=== PATIENT | female | born 1935 | race Caucasian/White ===

== ENCOUNTER → 2016-11-08 | Outpatient (CLI) | payer OTHER ==
[~2016-11-08] MED LIST: ACET-1257 PO; AMLO-110 PO; APR/25 PO; ASPI81TA28 PO; ATOR-26 PO; CRD200 PO; CYAN100020 PO; DOCU-94 PO; ESCI10TA17 PO; FURO-85 PO; LATA0.5S OPB; METO25TA56 PO; NTRGSL/4 UT; NYST1POW7 TOP; SENN8.6T15 PO; TRMCR515 TOP; VTMD1000 PO; WARF4TAB PO
[2016-11-08 12:37] LABS: INR 2.4 (0.9-1.1); PROTHROMBIN TIME (PATIENT) 26.5 SECONDS (9.0-12.0)
== END | disposition home or self-care (01) ==
LOC: C.LABWYN 12:38
PROVIDERS: ATTEND Family Medicine
DX: Z51.81 Encounter for therapeutic drug level monitoring (principal); Z79.01 Long term (current) use of anticoagulants; I48.91 Unspecified atrial fibrillation

== ENCOUNTER → 2016-11-29 | Outpatient (CLI) | payer OTHER ==
[2016-11-29 09:38] LABS: INR 1.5 (0.9-1.1); PROTHROMBIN TIME (PATIENT) 16.5 SECONDS (9.0-12.0)
== END | disposition home or self-care (01) ==
LOC: C.LABWYN 09:06
PROVIDERS: ATTEND Family Medicine
DX: I48.91 Unspecified atrial fibrillation (principal)

== ENCOUNTER → 2016-12-18 | Outpatient (CLI) | payer OTHER ==
[~2016-12-18] MED LIST changes: +AMLO2.5T PO; -APR/25 PO; +ATV5X PO; +AZIT-60 PO; +ESCI1TAB6 PO; +HYDR-4716 PO; +MULT-513 PO; +ONDA4TAB46 PO; +PRD20 PO; +SENN1TAB86 PO; -SENN8.6T15 PO; +TRMCR130WC TOP; +XPNINS INH
[2016-12-18 14:17] LABS: INR 2.4 (0.9-1.1); PROTHROMBIN TIME (PATIENT) 27.2 SECONDS (9.0-12.0)
== END | disposition home or self-care (01) ==
LOC: C.LABWYN 05:55
PROVIDERS: ATTEND Family Medicine
DX: Z51.81 Encounter for therapeutic drug level monitoring (principal); Z79.01 Long term (current) use of anticoagulants

== ENCOUNTER → 2017-01-17 | Outpatient (CLI) | payer OTHER ==
[2017-01-17 12:21] LABS: PROTHROMBIN TIME (PATIENT) 80.8 SECONDS (9.0-12.0)
== END | disposition home or self-care (01) ==
LOC: C.LABWYN 12:52
PROVIDERS: ATTEND Family Medicine
DX: I48.91 Unspecified atrial fibrillation (principal)

== ENCOUNTER → 2017-01-22 | Outpatient (CLI) | payer OTHER ==
[2017-01-22 12:40] LABS: PROTHROMBIN TIME (PATIENT) 60.2 SECONDS (9.0-12.0)
[2017-01-22 12:41] LABS: INR 5.3 (0.9-1.1)
== END | disposition home or self-care (01) ==
LOC: C.LABWYN 15:25
PROVIDERS: ATTEND Family Medicine
DX: I48.91 Unspecified atrial fibrillation (principal)

== ENCOUNTER → 2017-01-24 | Outpatient (CLI) | payer OTHER ==
[~2017-01-24] MED LIST changes: -AMLO2.5T PO; +APR/25 PO; -ATV5X PO; -AZIT-60 PO; -ESCI1TAB6 PO; -HYDR-4716 PO; -MULT-513 PO; -ONDA4TAB46 PO; -PRD20 PO; -SENN1TAB86 PO; +SENN8.6T15 PO; -TRMCR130WC TOP; -XPNINS INH
[2017-01-24 12:16] LABS: PROTHROMBIN TIME (PATIENT) 70.6 SECONDS (9.0-12.0)
[2017-01-24 12:25] LABS: INR 6.1 (0.9-1.1)
== END | disposition home or self-care (01) ==
LOC: C.LABWYN 12:50
PROVIDERS: ATTEND Family Medicine
DX: I48.91 Unspecified atrial fibrillation (principal)

== ENCOUNTER → 2017-01-29 | Outpatient (CLI) | payer OTHER ==
[~2017-01-29] MED LIST changes: +AMLO2.5T PO; -APR/25 PO; +ATV5X PO; +AZIT-60 PO; +ESCI1TAB6 PO; +HYDR-4716 PO; +MULT-513 PO; +ONDA4TAB46 PO; +PRD20 PO; +SENN1TAB86 PO; -SENN8.6T15 PO; +TRMCR130WC TOP; +XPNINS INH
[2017-01-29 12:24] LABS: INR 1.3 (0.9-1.1); PROTHROMBIN TIME (PATIENT) 14.4 SECONDS (9.0-12.0)
== END | disposition home or self-care (01) ==
LOC: C.LABWYN 12:27
PROVIDERS: ATTEND Family Medicine
DX: I48.91 Unspecified atrial fibrillation (principal)

== ENCOUNTER → 2017-02-05 | Outpatient (CLI) | payer OTHER ==
[2017-02-05 13:24] LABS: INR 1.6 (0.9-1.1); PROTHROMBIN TIME (PATIENT) 17.7 SECONDS (9.0-12.0)
== END | disposition home or self-care (01) ==
LOC: C.LABWYN 16:06
PROVIDERS: ATTEND Family Medicine
DX: I48.0 Paroxysmal atrial fibrillation (principal)

== ENCOUNTER → 2017-05-07 | Outpatient (CLI) | payer OTHER ==
[~2017-05-07] MED LIST changes: -AMLO2.5T PO; +APR/25 PO; -ATV5X PO; -AZIT-60 PO; -ESCI1TAB6 PO; -HYDR-4716 PO; -MULT-513 PO; -ONDA4TAB46 PO; -PRD20 PO; -SENN1TAB86 PO; +SENN8.6T15 PO; -TRMCR130WC TOP; -XPNINS INH
[2017-05-07 12:25] LABS: MEAN CELL VOLUME 97.6 fL (80-100); MEAN CORPUSCULAR HEMOGLOBIN 30.9 pg (25-34); MEAN CORPUSCULAR HGB CONC 31.6 g/dl (32-36); MEAN PLATELET VOLUME 10.4 fL (7.4-10.4); PLATELET COUNT 146 K/uL (130-400); RED BLOOD COUNT 3.79 M/uL (4.2-5.4); WHITE BLOOD COUNT 4.53 K/uL (4.8-10.8)
[2017-05-07 13:11] LABS: BLOOD UREA NITROGEN 25 mg/dl (7-18); BUN/CREATININE RATIO 17.6 (10-20); CARBON DIOXIDE 24 mmol/L (21-32); CHLORIDE 116 mmol/L (98-107); GLUCOSE 74 mg/dl (70-99); POTASSIUM 3.5 mmol/L (3.5-5.1); SODIUM 149 mmol/L (136-145)
== END | disposition home or self-care (01) ==
LOC: C.LABWYN 17:46
PROVIDERS: ATTEND Nurse Practitioner Adult Health
DX: I12.9 Hypertensive chronic kidney disease with stage 1 through stage 4 chronic kidney disease, or unspecified chronic kidney disease (principal); N18.9 Chronic kidney disease, unspecified

== ENCOUNTER 2017-09-17 19:34 | Inpatient (IN) | payer OTHER ==
[~2017-09-17] VITALS: Ht 162.6 cm; Wt 62.0 kg
[~2017-09-17 19:34] MED LIST changes: -APR/25 PO; -ASPI81TA28 PO; +HYDR-4716 PO; +SENN1TAB86 PO; -SENN8.6T15 PO
--- NOTE | 2017-09-17 20:04 | EMERGENCY ROOM VISIT NOTE ---
History Report prepared by Amy: Anirudh Flanagan Under the Supervision of: Dr. Adrian Acuña M.D. First contact with patient: 19:37 Chief Complaint: SYNCOPE Stated Complaint: SYNCOPE, AMS Nursing Triage Summary: [facility] PT was in restroom with staff, sitting on toilet. PT had syncopal episode for staff X 2-3 mins. PERRL upon arrival, PT face is symmetrical with strong and equal bilateral hand grasp. PT has audible gurgling with cough. PT has multiple red pak noted all over upper extremities. PT oriented to self, HX of dementia History of Present Illness The patient is an 82 year old female who presents to the Emergency Room with complaints of an episode of syncope occurring today. Per nursing staff, the patient was in the bathroom with nursing room staff when she lost consciousness. She notes that the patient's episode lasted for 2-3 minutes. The patient states that she is feeling fine right now and is not sleepy or in any pain. She notes that she does not remember passing out. She complains of a cough and abdominal pain. HPI limited secondary to dementia. Source of History: patient, nursing staff History Limited By: dementia Onset: today Position: other (global) Quality: other (syncope) Timing: other (an episode) Note: She denies being sleepy or experiencing any pain. Review of Systems ROS limited secondary to dementia. Past Medical & Surgical Medical Problems: (1) Atrial fibrillation (2) CKD (chronic kidney disease), stage IV (3) Coronary artery disease (4) Dementia (5) Dyslipidemia (6) Fall (7) H/O cardiac pacemaker (8) History of atrial fibrillation (9) History of endometrial cancer (10) History of renal carcinoma (11) Hypertension (12) Near syncope (13) Paroxysmal supraventricular tachycardia (14) Syncope (15) Syncope and collapse Surgical Problems: (1) Status post cataract extraction (2) Status post coronary artery bypass grafting (3) Status post hysterectomy Family History Coronary artery disease SISTER Dementia MOTHER Heart disease FATHER Prostate carcinoma BROTHER Social History Smoking Status: Unknown if Ever Smoked Alcohol Use: none Drug Use: none Marital Status: Housing Status: [facility] Occupation Status: retired Current/Historical Medications Scheduled Amiodarone HCl (Amiodarone HCl), 200 MG PO DAILY Amlodipine Besylate (Norvasc), 2.5 MG PO DAILY Aspirin (Aspirin Ec), 81 MG PO DAILY Atorvastatin (Lipitor), 80 MG PO DAILY Escitalopram Oxalate (Lexapro), 5 MG PO DAILY Furosemide (Lasix), 20 MG PO 2XWK Hydralazine HCl (Hydralazine HCl), 25 MG PO TID Latanoprost (Xalatan 0.005% Oph Naomie), 1 DROP OPB HS Metoprolol Tartrate (Lopressor) (Lopressor), 25 MG PO Q12 Multivitamins/Minerals (Mvi With Minerals), 1 TAB PO DAILY Scheduled PRN Acetaminophen (Tylenol Extra Strength), 500 MG PO Q4 PRN for Pain or Fever Lorazepam (Lorazepam), 0.5 TAB PO Q6 PRN for Anxiety and/or Sedation Nitroglycerin (Nitrostat), 0.4 MG UT UD PRN for Chest Pain Ondansetron Hcl (Zofran), 4 MG PO Q6 PRN for Nausea Triamcinolone Acet (Aristocort 0.1%), 1 APPLN TOP BID PRN for RASH Allergies Coded Allergies: Allopurinol (Verified Adverse Reaction, Intermediate, weakness, 09/22/16) Lisinopril (Verified Adverse Reaction, Intermediate, COUGH, 09/22/16) Losartan (Verified Adverse Reaction, Intermediate, TONGUE SWELLING, ) Physical Exam Vital Signs Date Time Temp Pulse Resp B/P (MAP) Pulse Ox O2 Delivery O2 Flow Rate FiO2 09/17/17 23:01 126/50 09/17/17 23:00 63 22 91 09/17/17 22:00 100 22 125/49 95 Room Air 09/17/17 21:40 62 22 136/49 94 Room Air 09/17/17 20:51 72 09/17/17 19:48 37.0 82 18 141/66 95 Room Air Physical Exam GENERAL: Awake, fatigued, in no distress HENT: Normocephalic, atraumatic. Oropharynx unremarkable. Cracked lips. EYES: Normal conjunctiva. Sclera non-icteric. NECK: Supple. No nuchal rigidity. FROM. No JVD. RESPIRATORY: Clear to auscultation. CARDIAC: Regular rate, normal rhythm. Extremities warm and well perfused. Pulses equal. ABDOMEN: Soft, non-distended. No tenderness to palpation. No rebound or guarding. No masses. RECTAL: Deferred. MUSCULOSKELETAL: Chest examination reveals no tenderness. The back is symmetrical on inspection without obvious abnormality. There is no CVA tenderness to palpation. No joint edema. LOWER EXTREMITIES: Calves are equal size bilaterally and non-tender. No edema. No discoloration. NEURO: Normal sensorium. No sensory or motor deficits noted. Slow motor movement but moving all extremities equally, A&Ox0 due to baseline dementia. SKIN: No rash or jaundice noted. Medical Decision & Procedures ER Provider Diagnostic Interpretation: Radiology results as stated below per my review and radiologist interpretation: CT OF THE HEAD WITHOUT CONTRAST FINDINGS: No acute intracranial hemorrhage, midline shift or mass effect is present. Ventricular dilatation is unchanged. The basilar cisterns are patent. There are no extra-axial collections. White matter hypodensity suggests small vessel disease. 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 There are no findings to suggest acute dural sinus thrombosis or acute territorial infarct. There is no calvarial fracture. There is mild mucosal thickening of the ethmoid sinuses. IMPRESSION: No acute intracranial findings. Stable ventricular dilatation. Electronically signed by: Johny Aguirre M.D. 09/17/2017 9:46 PM CHEST ONE VIEW PORTABLE FINDINGS: A dual lead left subclavian pacemaker, median sternotomy wires and clips from bypass grafting are noted. Cardiomediastinal silhouette is stable. There is no pneumothorax or pleural effusion. Apparent hazy left basilar opacity is likely artifactual. There is no evidence of pulmonary edema. IMPRESSION: 1. No definite acute cardiopulmonary findings. 2. Apparent hazy left basilar retrocardiac opacity. This is likely artifactual. An infectious process could appear similar. PA and lateral chest radiographs could be obtained if persistent symptoms. Electronically signed by: Johny Aguirre M.D. 09/17/2017 9:05 PM Laboratory Results Test 09/17/17 21:00 09/17/17 21:17 09/17/17 21:19 Urine Color DK YELLOW Urine Appearance CLOUDY (CLEAR) Urine pH 5.0 (4.5-7.5) Urine Specific [place] 1.021 (1.000-1.030) Urine Protein TRACE (NEG) Urine Glucose (UA) NEG (NEG) Urine Ketones TRACE (NEG) Urine Occult Blood NEG (NEG) Urine Nitrite NEG (NEG) Urine Bilirubin NEG (NEG) Urine Urobilinogen NEG (NEG) Urine Leukocyte Esterase TRACE (NEG) Urine WBC (Auto) 1-5 /hpf (0-5) Urine RBC (Auto) 0-4 /hpf (0-4) Urine Hyaline Casts (Auto) 5-10 /lpf (0-5) Urine Epithelial Cells (Auto) >30 /lpf (0-5) Urine Bacteria (Auto) 4+ (NEG) Urine Renal Epithelial Cells 0-5 /lpf (0-5) Urine Yeast (Auto) (NONE PRSENT) Immature Granulocyte % (Auto) 0.3 % White Blood Count 14.28 K/uL (4.8-10.8) Red Blood Count 3.92 M/uL (4.2-5.4) Hemoglobin 12.9 g/dL (12.0-16.0) Hematocrit 39.4 % (37-47) Mean Corpuscular Volume 100.5 fL (80-100) Mean Corpuscular Hemoglobin 32.9 pg (25-34) Mean Corpuscular Hemoglobin Concent 32.7 g/dl (32-36) Platelet Count 152 K/uL (130-400) Mean Platelet Volume 10.2 fL (7.4-10.4) Neutrophils (%) (Auto) 86.0 % Lymphocytes (%) (Auto) 6.9 % Monocytes (%) (Auto) 6.1 % Eosinophils (%) (Auto) 0.6 % Basophils (%) (Auto) 0.1 % Neutrophils # (Auto) 12.28 K/uL (1.4-6.5) Lymphocytes # (Auto) 0.98 K/uL (1.2-3.4) Monocytes # (Auto) 0.87 K/uL (0.11-0.59) Eosinophils # (Auto) 0.09 K/uL (0-0.5) Basophils # (Auto) 0.02 K/uL (0-0.2) Immature Granulocyte # (Auto) 0.04 K/uL (0.00-0.02) Prothrombin Time 10.9 SECONDS (9.0-12.0) Prothromb Time International Ratio 1.0 (0.9-1.1) Total Bilirubin 0.8 mg/dl (0.2-1) Direct Bilirubin 0.2 mg/dl (0-0.2) Aspartate Amino Transf (AST/SGOT) 33 U/L (15-37) Alanine Aminotransferase (ALT/SGPT) 45 U/L (12-78) Alkaline Phosphatase 112 U/L (45-117) Pro-B-Type Natriuretic Peptide 1644 pg/ml (0-1800) Total Protein 7.5 gm/dl (6.4-8.2) Albumin 3.6 gm/dl (3.4-5.0) Lipase 285 U/L (73-393) Thyroid Stimulating Hormone (TSH) 0.601 uIu/ml (0.300-4.500) Laboratory results reviewed by me Medications Administered Medications (Trade) Dose Ordered Sig/Ajti Route Start Time Stop Time Status Last Admin Dose Admin Ceftriaxone Sodium 1000 mg/ Dextrose 60 ml @ 100 mls/hr ONE STAT IV 09/17/17 21:55 09/17/17 22:30 DC 09/17/17 21:55 100 MLS/HR ECG Indication: altered mental status Rate (beats per minute): 64 Rhythm: other (atrial paced) Findings: no acute ischemic change, left axis deviation, other (poor baseline artifact) ED Course 1955: The patient was evaluated in room B3. A complete history and physical exam was performed. 2154: Ceftriaxone Sodium 1000mg/Dextrose 60 ml @ 100mls/hr IV 2233: Upon reexamination, the patient was stable. I discussed the test results and treatment plan with Dr. Troncoso - VanistRossi. The patient will be evaluated for further management. Medical Decision I reviewed the patient's past medical history, medications, and the nursing notes as described above. Differential diagnoses include: vasovagal vs. orthostatic syncope, dehydration, electrolyte abnormality, pneumonia, bronchitis, UTI, CVA, and ICH. The patient is an 82-year-old woman with a past medical history of diastolic heart failure, A. fib not on Coumadin, presents to the emergency Department with syncopal episode from her assisted living facility when she was going to the bathroom per history of present illness. On arrival the patient is demented and AOx0, afebrile with stable vital signs. Labs notable for a leukocytosis of 14. UA with 4+ bacteria. Trop negative. EKG unremarkable. Chest x-ray with left retrocardiac opacity concerning for pneumonia given the patient's semi-productive cough and leukocytosis. Given the patient's syncopal episode in the setting of infection, referred for admission. Case was discussed with Rossi Tracy hospitalist, who will admit the patient for further management. Medication Reconcilliation Current Medication List: was personally reviewed by me Blood Pressure Screening Patient's blood pressure: Normal blood pressure Consults Time Called: 2231 Consulting Physician: Dr. Troncoso Returned Call: 2233 I discussed the patient with Dr. Troncoso - HospitalistRossi. He will evaluate the patient for further treatment. Impression Primary Impression: Syncope Additional Impressions: History of heart failure UTI (urinary tract infection) Pneumonia Scribe Attestation The scribe's documentation has been prepared under my direction and personally reviewed by me in its entirety. I confirm that the note above accurately reflects all work, treatment, procedures, and medical decision making performed by me. Departure Information Dispostion Being Evaluated By Hospitalist Referrals RITA PEDROZA (PCP) Patient Instructions My [facility] Problem Qualifiers
[2017-09-17] MEDS ORDERED: ONDA4TAB46 PO (20:49)
[2017-09-17] MEDS ORDERED: AMLO2.5T PO (20:49)
[2017-09-17] MEDS ORDERED: ATV5X PO (20:49)
[2017-09-17] MEDS ORDERED: TRMCR130WC TOP (20:49)
[2017-09-17] MEDS ORDERED: MULT-513 PO (20:49)
[2017-09-17] MEDS ORDERED: ESCI1TAB6 PO (20:49)
--- NOTE | 2017-09-17 21:06 | DIAGNOSTIC IMAGING REPORT ---
CHEST ONE VIEW PORTABLE CLINICAL HISTORY: Abdominal pain. COMPARISON STUDY: Chest radiograph September 22, 2016. FINDINGS: A dual lead left subclavian pacemaker, median sternotomy wires and clips from bypass grafting are noted. Cardiomediastinal silhouette is stable. There is no pneumothorax or pleural effusion. Apparent hazy left basilar opacity is likely artifactual. There is no evidence of pulmonary edema. IMPRESSION: 1. No definite acute cardiopulmonary findings. 2. Apparent hazy left basilar retrocardiac opacity. This is likely artifactual. An infectious process could appear similar. PA and lateral chest radiographs could be obtained if persistent symptoms. Electronically signed by: Johny Aguirre M.D. 09/17/2017 9:05 PM Dictated Date/Time: 09/17/2017 9:03 PM
[2017-09-17 21:32] LABS: URINE APPEARANCE CLOUDY (CLEAR); URINE BILIRUBIN NEG (NEG); URINE COLOR DK YELLOW; URINE EPITHELIAL CELL AUTO >30 /lpf (0-5); URINE NITRITE NEG (NEG); URINE SPECIFIC GRAVITY 1.021 (1.000-1.030); UROBILINOGEN NEG (NEG); ZZURINE CULT IF INDIC CATH YES
[2017-09-17 21:32] LABS: BASO % 0.1 %; BASO ABS # 0.02 K/uL (0-0.2); COMPLETE YES; EOS % 0.6 %; HEMATOCRIT 39.4 % (37-47); IG% 0.3 %; LYMPH % 6.9 %; LYMPH ABS # 0.98 K/uL (1.2-3.4); MEAN CELL VOLUME 100.5 fL (80-100); MEAN CORPUSCULAR HEMOGLOBIN 32.9 pg (25-34); MEAN CORPUSCULAR HGB CONC 32.7 g/dl (32-36); MEAN PLATELET VOLUME 10.2 fL (7.4-10.4); MONO % 6.1 %; PLATELET COUNT 152 K/uL (130-400); RED BLOOD COUNT 3.92 M/uL (4.2-5.4); WHITE BLOOD COUNT 14.28 K/uL (4.8-10.8)
[2017-09-17 21:34] LABS: MANUAL MICROSCOPIC REQUIRED? NO; REVIEW REQ? YES
[2017-09-17 21:45] LABS: PROTHROMBIN TIME (PATIENT) 10.9 SECONDS (9.0-12.0)
--- NOTE | 2017-09-17 21:48 | DIAGNOSTIC IMAGING REPORT ---
CT OF THE HEAD WITHOUT CONTRAST CLINICAL HISTORY: Syncope. COMPARISON STUDY: Head CT July 17, 2016. CT DOSE: 749.40 mGy.cm TECHNIQUE: Helical axial images of the head were obtained without IV contrast. Automated exposure control was utilized for the study. A dose lowering technique was utilized adhering to the principles of ALARA. FINDINGS: No acute intracranial hemorrhage, midline shift or mass effect is present. Ventricular dilatation is unchanged. The basilar cisterns are patent. There are no extra-axial collections. White matter hypodensity suggests small vessel disease. 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 There are no findings to suggest acute dural sinus thrombosis or acute territorial infarct. There is no calvarial fracture. There is mild mucosal thickening of the ethmoid sinuses. IMPRESSION: No acute intracranial findings. Stable ventricular dilatation. Electronically signed by: Johny Aguirre M.D. 09/17/2017 9:46 PM Dictated Date/Time: 09/17/2017 9:44 PM
[2017-09-17] MEDS ORDERED: CEFTRIAXONE SOD INJ 1,000 MG in DEXTROSE 5% 50ML 50 ML IV STA (21:55)
[2017-09-17 22:03] LABS: ALT/SGPT 45 U/L (12-78); BLOOD UREA NITROGEN 28 mg/dl (7-18); BUN/CREATININE RATIO 17.5 (10-20); CALCIUM 9.2 mg/dl (8.5-10.1); CARBON DIOXIDE 22 mmol/L (21-32); CHLORIDE 111 mmol/L (98-107); CREATININE 1.59 mg/dl (0.60-1.20); GLUCOSE 131 mg/dl (70-99); MAGNESIUM 2.1 mg/dl (1.8-2.4); POTASSIUM 3.9 mmol/L (3.5-5.1); SODIUM 143 mmol/L (136-145)
[2017-09-17] MEDS ORDERED: CEFTRIAXONE SOD INJ 1 GM ADDVIAL ONE (22:03)
[2017-09-17 22:08] LABS: ALKALINE PHOSPHATASE 112 U/L (45-117); AST/SGOT 33 U/L (15-37)
[2017-09-17] MEDS ORDERED: AZITHROMYCIN 250 MG TAB PO ONE (22:45)
[2017-09-17] MEDS ORDERED: ACETAMINOPHEN 325 MG TAB PO PRN (23:15)
[2017-09-17] MEDS ORDERED: LORAZEPAM 0.5 MG TAB PO PRN (23:15)
[2017-09-17] MEDS ORDERED: MAGNESIUM HYDROXIDE SUSP 30 ML UDC PO PRN (23:15)
[2017-09-17] MEDS ORDERED: ONDANSETRON INJ 2 MG/ML 2 ML VIAL IV PRN (23:15)
[2017-09-17] MEDS ORDERED: ALUMINUM/MAGNESIUM/SIMETH (MAALOX MAX) 30 ML UDC PO PRN (23:15)
[2017-09-17] MEDS ORDERED: ASPI81TA28 PO (23:24)
--- NOTE | 2017-09-17 23:26 | History and Physical ---
History & Physical Date & Time of Service: Sep 17, 2017 at 23:11 Chief Complaint: Syncope, Ams Primary Care Physician: Rivera Burns D.O. History of Present Illness Source: clinic records, hospital records, EMS This is an 82 year old female coming from assisted living - with a PMH of dementia, CAD s/p CABG and stents, Paroxysmal A. fib, tachy-luda syndrome s/p PPM, CKD stage 3, HTN, HLD - presents secondary to a syncopal episode. As per records, patient fell in the bathroom of the assisted living. Found around 2-3 minutes later. As per records, she has a history of falls and was taken off of Coumadin due to her propensity for falls. She has ambulatory dysfunction chronically and is supposed to use a walker, but going by outpatient notes, she uses refuses to use it. After presenting, she was noted to have a productive cough. CXR performed showing possible infiltrate. Labs suggest a leukocytosis. During exam, patient was oriented to person, but not much else. Very difficult to obtain any history from patient due to her underlying severe dementia. Past Medical/Surgical History Medical Problems: (1) Atrial fibrillation Status: Chronic (2) CKD (chronic kidney disease), stage IV Status: Chronic (3) Coronary artery disease Status: Chronic (4) Dyslipidemia Status: Chronic (5) H/O cardiac pacemaker Status: Chronic (6) History of atrial fibrillation Status: Chronic (7) History of endometrial cancer Status: Chronic (8) History of renal carcinoma Status: Chronic (9) Hypertension Status: Chronic (10) Paroxysmal supraventricular tachycardia Status: Chronic Surgical Problems: (1) Status post cataract extraction Status: Chronic (2) Status post coronary artery bypass grafting Permanent Comment: CORONARY ARTERY BYPASS GRAFT ARTERIAL AND VENOUS 1 GRAFT performed by Jefe Oneil MD at [facility] 2014 Status: Chronic (3) Status post hysterectomy Status: Chronic Family History Coronary artery disease SISTER Dementia MOTHER Heart disease FATHER Prostate carcinoma BROTHER Social History Smoking Status: Unknown if Ever Smoked Drug Use: none Marital Status: Housing status: lives with family Occupational Status: retired Immunizations History of Influenza Vaccine: No History of Pneumococcal: Yes Pneumococcal Date: Sep 05, 2006 Multi-Drug Resistant Organisms History of MDRO: No Allergies Coded Allergies: Allopurinol (Verified Adverse Reaction, Intermediate, weakness, 09/22/16) Lisinopril (Verified Adverse Reaction, Intermediate, COUGH, 09/22/16) Losartan (Verified Adverse Reaction, Intermediate, TONGUE SWELLING, ) Home Medications Scheduled Amiodarone HCl (Amiodarone HCl), 200 MG PO DAILY Amlodipine Besylate (Norvasc), 2.5 MG PO DAILY Aspirin (Aspirin Ec), 81 MG PO DAILY Atorvastatin (Lipitor), 80 MG PO DAILY Escitalopram Oxalate (Lexapro), 5 MG PO DAILY Furosemide (Lasix), 20 MG PO 2XWK Hydralazine HCl (Hydralazine HCl), 25 MG PO TID Latanoprost (Xalatan 0.005% Oph Naomie), 1 DROP OPB HS Metoprolol Tartrate (Lopressor) (Lopressor), 25 MG PO Q12 Multivitamins/Minerals (Mvi With Minerals), 1 TAB PO DAILY Scheduled PRN Acetaminophen (Tylenol Extra Strength), 500 MG PO Q4 PRN for Pain or Fever Lorazepam (Lorazepam), 0.5 TAB PO Q6 PRN for Anxiety and/or Sedation Nitroglycerin (Nitrostat), 0.4 MG UT UD PRN for Chest Pain Ondansetron Hcl (Zofran), 4 MG PO Q6 PRN for Nausea Triamcinolone Acet (Aristocort 0.1%), 1 APPLN TOP BID PRN for RASH Review of Systems Cannot obtain due to her dementia Physical Exam Vital Signs Date Time Temp Pulse Resp B/P (MAP) Pulse Ox O2 Delivery O2 Flow Rate FiO2 09/17/17 22:00 100 22 125/49 95 Room Air 09/17/17 21:40 62 22 136/49 94 Room Air 09/17/17 20:51 72 09/17/17 19:48 37.0 82 18 141/66 95 Room Air General Appearance: no apparent distress, + pertinent finding (+pleasantly demented) Head: normocephalic, atraumatic Eyes: normal inspection ENT: hearing grossly normal Respiratory/Chest: no respiratory distress, no accessory muscle use, + rhonchi , + pertinent finding (coughing throughout exam, congestion) Cardiovascular: regular rate, rhythm, no edema, no murmur Abdomen/GI: normal bowel sounds, non tender, soft Back: no CVA tenderness, no muscle spasm Extremities/Musculoskelatal: normal inspection, no calf tenderness, normal capillary refill, no pedal edema, normal range of motion Neurologic/Psych: alert, + disoriented Skin: normal color Diagnostics Laboratory Results Results Past 24 Hours Test 09/17/17 21:00 09/17/17 21:17 09/17/17 21:19 09/17/17 22:31 Range/Units Urine Color DK YELLOW Urine Appearance CLOUDY CLEAR Urine pH 5.0 4.5-7.5 Urine Specific [place] 1.021 1.000-1.030 Urine Protein TRACE NEG Urine Glucose (UA) NEG NEG Urine Ketones TRACE NEG Urine Occult Blood NEG NEG Urine Nitrite NEG NEG Urine Bilirubin NEG NEG Urine Urobilinogen NEG NEG Urine Leukocyte Esterase TRACE NEG Urine WBC (Auto) 1-5 0-5 /hpf Urine RBC (Auto) 0-4 0-4 /hpf Urine Hyaline Casts (Auto) 5-10 0-5 /lpf Urine Epithelial Cells (Auto) >30 0-5 /lpf Urine Bacteria (Auto) 4+ NEG Urine Renal Epithelial Cells 0-5 0-5 /lpf Urine Yeast (Auto) NONE PRSENT White Blood Count 14.28 4.8-10.8 K/uL Red Blood Count 3.92 4.2-5.4 M/uL Hemoglobin 12.9 12.0-16.0 g/dL Hematocrit 39.4 37-47 % Mean Corpuscular Volume 100.5 80-100 fL Mean Corpuscular Hemoglobin 32.9 25-34 pg Mean Corpuscular Hemoglobin Concent 32.7 32-36 g/dl Platelet Count 152 130-400 K/uL Mean Platelet Volume 10.2 7.4-10.4 fL Neutrophils (%) (Auto) 86.0 % Lymphocytes (%) (Auto) 6.9 % Monocytes (%) (Auto) 6.1 % Eosinophils (%) (Auto) 0.6 % Basophils (%) (Auto) 0.1 % Neutrophils # (Auto) 12.28 1.4-6.5 K/uL Lymphocytes # (Auto) 0.98 1.2-3.4 K/uL Monocytes # (Auto) 0.87 0.11-0.59 K/uL Eosinophils # (Auto) 0.09 0-0.5 K/uL Basophils # (Auto) 0.02 0-0.2 K/uL RDW Standard Deviation 50.3 36.4-46.3 fL RDW Coefficient of Variation 13.8 11.5-14.5 % Immature Granulocyte % (Auto) 0.3 % Immature Granulocyte # (Auto) 0.04 0.00-0.02 K/uL Prothrombin Time 10.9 9.0-12.0 SECONDS Prothromb Time International Ratio 1.0 0.9-1.1 Sodium Level 143 136-145 mmol/L Potassium Level 3.9 3.5-5.1 mmol/L Chloride Level 111 98-107 mmol/L Carbon Dioxide Level 22 21-32 mmol/L Anion Gap 11.0 3-11 mmol/L Blood Urea Nitrogen 28 7-18 mg/dl Creatinine 1.59 0.60-1.20 mg/dl Est Creatinine Clear Calc Drug Dose 25.5 ml/min Estimated GFR () 35.2 Estimated GFR (Non- 30.3 BUN/Creatinine Ratio 17.5 10-20 Random Glucose 131 70-99 mg/dl Calcium Level 9.2 8.5-10.1 mg/dl Magnesium Level 2.1 1.8-2.4 mg/dl Total Bilirubin 0.8 0.2-1 mg/dl Direct Bilirubin 0.2 0-0.2 mg/dl Aspartate Amino Transf (AST/SGOT) 33 15-37 U/L Alanine Aminotransferase (ALT/SGPT) 45 12-78 U/L Alkaline Phosphatase 112 45-117 U/L Troponin I < 0.015 0-0.045 ng/ml Pro-B-Type Natriuretic Peptide 1644 0-1800 pg/ml Total Protein 7.5 6.4-8.2 gm/dl Albumin 3.6 3.4-5.0 gm/dl Lipase 285 73-393 U/L Test 09/17/17 23:04 Range/Units Microbiology Results 09/17/17 Blood Culture, Ordered Pending 09/17/17 Blood Culture, Ordered Pending 09/17/17 Urine Culture, Received Pending Diagnostic Radiology CT OF THE HEAD WITHOUT CONTRAST CLINICAL HISTORY: Syncope. COMPARISON STUDY: Head CT July 17, 2016. CT DOSE: 749.40 mGy.cm TECHNIQUE: Helical axial images of the head were obtained without IV contrast. Automated exposure control was utilized for the study. A dose lowering technique was utilized adhering to the principles of ALARA. FINDINGS: No acute intracranial hemorrhage, midline shift or mass effect is present. Ventricular dilatation is unchanged. The basilar cisterns are patent. There are no extra-axial collections. White matter hypodensity suggests small vessel disease. 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 There are no findings to suggest acute dural sinus thrombosis or acute territorial infarct. There is no calvarial fracture. There is mild mucosal thickening of the ethmoid sinuses. IMPRESSION: No acute intracranial findings. Stable ventricular dilatation. CHEST ONE VIEW PORTABLE CLINICAL HISTORY: Abdominal pain. COMPARISON STUDY: Chest radiograph September 22, 2016. FINDINGS: A dual lead left subclavian pacemaker, median sternotomy wires and clips from bypass grafting are noted. Cardiomediastinal silhouette is stable. There is no pneumothorax or pleural effusion. Apparent hazy left basilar opacity is likely artifactual. There is no evidence of pulmonary edema. IMPRESSION: 1. No definite acute cardiopulmonary findings. 2. Apparent hazy left basilar retrocardiac opacity. This is likely artifactual. An infectious process could appear similar. PA and lateral chest radiographs could be obtained if persistent symptoms. Impression Assessment and Plan This is an 82 year old female coming from assisted living - with a PMH of dementia, CAD s/p CABG and stents, Paroxysmal A. fib, tachy-luda syndrome s/p PPM, CKD stage 3, HTN, HLD - presents secondary to a syncopal episode. Recurrent Syncope due to ambulatory dysfunction patient has multiple falls due to her failure to use her walker Head CT negative will monitor in tele check TSH and B12 levels pacemaker interrogation PT/OT gentle IV hydration Pneumonia likely CAP patient with a productive cough, +leukocytosis CXR suggests retrocardiac opacity will start Rocephin + Azithro Urinary Tract Infection patient with dirty UA, urine culture pending on Rocephin which will cover UTI Hx. of Paroxysmal A. Fib history of tachybrady syndrome s/p permanent pacemaker will get a pacemaker interrogation off of Coumadin due to fall risk continue b-joe and amiodarone CAD s/p CABG and stents trend cardiac enzymes monitor in tele continue aspirin, statin, b-joe HTN continue amlodipine CKD stage 3-4 creatinine at baseline gentle IV hydration monitor creat and avoid nephrotoxic agents when able DVT ppx Lovenox FULL CODE VTE Prophylaxis VTE Risk Assessment Done? Y/N: Yes Risk Level: Moderate
[2017-09-17 23:49] LABS: THYROID STIMULATING HORMONE 0.601 uIu/ml (0.300-4.500)
[2017-09-18 00:25] VITALS: Ht 162.6 cm; Wt 62.0 kg
[2017-09-18 01:53] VITALS: BP 147/79; PULSE 67; TEMP 37.3; O2SAT 96
[2017-09-18] MEDS ORDERED: NURSING VERBAL MED ORDER ONE (02:30)
[2017-09-18] MEDS ORDERED: AZITHROMYCIN 500 MG / D5W 250 ML IV ONE ×2 (03:00)
[2017-09-18] MEDS: SODIUM CHLORIDE 0.9% 1000ML 1,000 ML IV SCH ×2 (03:01→14:14)
[2017-09-18 04:00] VITALS: O2SAT 94
[2017-09-18 05:26] LABS: HEMATOCRIT 35.6 % (37-47); MEAN CELL VOLUME 99.7 fL (80-100); MEAN CORPUSCULAR HEMOGLOBIN 32.2 pg (25-34); MEAN CORPUSCULAR HGB CONC 32.3 g/dl (32-36); MEAN PLATELET VOLUME 9.9 fL (7.4-10.4); PLATELET COUNT 137 K/uL (130-400); RED BLOOD COUNT 3.57 M/uL (4.2-5.4); WHITE BLOOD COUNT 10.18 K/uL (4.8-10.8)
[2017-09-18 05:56] LABS: BUN/CREATININE RATIO 20.7 (10-20); CALCIUM 8.7 mg/dl (8.5-10.1); CREATININE 1.4 mg/dl (0.60-1.20); MAGNESIUM 2.1 mg/dl (1.8-2.4); POTASSIUM 3.6 mmol/L (3.5-5.1)
[2017-09-18 08:02] VITALS: BP 148/57; PULSE 62; TEMP 37.2; O2SAT 94
[2017-09-18] MEDS: METOPROLOL TARTRATE 25 MG TAB PO SCH ×2 (08:21→20:54)
[2017-09-18] MEDS: CEROVITE ADV FORMULA TAB PO SCH (08:21)
[2017-09-18] MEDS: ESCITALOPRAM OXALATE 10 MG TAB PO SCH (08:21)
[2017-09-18] MEDS: AMIODARONE 200 MG TAB PO SCH (08:22)
[2017-09-18] MEDS: AMLODIPINE BESYLATE 5 MG TAB PO SCH (08:22)
[2017-09-18] MEDS: ATORVASTATIN 40 MG TAB PO SCH (08:23)
[2017-09-18] MEDS: ASPIRIN 81 MG ECTAB PO SCH (08:23)
[2017-09-18] MEDS: ENOXAPARIN 30 MG/0.3 ML SYR SC SCH (08:23)
[2017-09-18] MEDS ORDERED: INFLUENZA ADMINISTRATION CHARGE ONE (09:00)
[2017-09-18] MEDS ORDERED: AZITHROMYCIN 250 MG TAB PO SCH (09:00)
[2017-09-18] MEDS ORDERED: INFLUENZA VACCINE HIGH DOSE 65+ 0.5 ML SYR IM. ONE (09:00)
[2017-09-18 11:35] VITALS: BP 126/66; PULSE 66; TEMP 37.2; O2SAT 94
[2017-09-18 13:56] LABS: CKMB/CK RATIO 2.5 (0-3.0)
--- NOTE | 2017-09-18 17:43 | Progress Note ---
Medicine Progress Note Date & Time of Visit: Sep 18, 2017 at 13:16. Subjective Pt was seen and examined Lying in bed with no distress Denies any chest pain, abdominal pain and SOB Objective Last 8 Hrs Date Time Temp Pulse Resp B/P (MAP) Pulse Ox O2 Delivery O2 Flow Rate FiO2 09/18/17 12:00 Room Air 09/18/17 11:35 37.2 66 20 126/66 (86) 94 Room Air Physical Exam: General- No acute distress Head- atraumatic Eyes- PERRL ENT- oropharynx clear Neck- supple, no JVD Lungs- No wheezing Heart- regular rhythm Abdomen- normal bowel sounds, soft Extremities- no calf tenderness Neuro- alert, oriented x 3; PERRL, move all 4 extremities Skin- warm & dry Laboratory Results: Last 24 Hours Test 09/17/17 21:00 09/17/17 21:17 09/17/17 21:19 09/17/17 23:24 Urine Color DK YELLOW Urine Appearance CLOUDY Urine pH 5.0 Urine Specific Patterson 1.021 Urine Protein TRACE Urine Glucose (UA) NEG Urine Ketones TRACE Urine Occult Blood NEG Urine Nitrite NEG Urine Bilirubin NEG Urine Urobilinogen NEG Urine Leukocyte Esterase TRACE Urine WBC (Auto) 1-5 /hpf Urine RBC (Auto) 0-4 /hpf Urine Hyaline Casts (Auto) 5-10 /lpf Urine Epithelial Cells (Auto) >30 /lpf Urine Bacteria (Auto) 4+ Urine Renal Epithelial Cells 0-5 /lpf Urine Yeast (Auto) White Blood Count 14.28 K/uL Red Blood Count 3.92 M/uL Hemoglobin 12.9 g/dL Hematocrit 39.4 % Mean Corpuscular Volume 100.5 fL Mean Corpuscular Hemoglobin 32.9 pg Mean Corpuscular Hemoglobin Concent 32.7 g/dl Platelet Count 152 K/uL Mean Platelet Volume 10.2 fL Neutrophils (%) (Auto) 86.0 % Lymphocytes (%) (Auto) 6.9 % Monocytes (%) (Auto) 6.1 % Eosinophils (%) (Auto) 0.6 % Basophils (%) (Auto) 0.1 % Neutrophils # (Auto) 12.28 K/uL Lymphocytes # (Auto) 0.98 K/uL Monocytes # (Auto) 0.87 K/uL Eosinophils # (Auto) 0.09 K/uL Basophils # (Auto) 0.02 K/uL RDW Standard Deviation 50.3 fL RDW Coefficient of Variation 13.8 % Immature Granulocyte % (Auto) 0.3 % Immature Granulocyte # (Auto) 0.04 K/uL Prothrombin Time 10.9 SECONDS Prothromb Time International Ratio 1.0 Sodium Level 143 mmol/L Potassium Level 3.9 mmol/L Chloride Level 111 mmol/L Carbon Dioxide Level 22 mmol/L Anion Gap 11.0 mmol/L Blood Urea Nitrogen 28 mg/dl Creatinine 1.59 mg/dl Est Creatinine Clear Calc Drug Dose 25.5 ml/min Estimated GFR () 35.2 Estimated GFR (Non- 30.3 BUN/Creatinine Ratio 17.5 Random Glucose 131 mg/dl Calcium Level 9.2 mg/dl Magnesium Level 2.1 mg/dl Total Bilirubin 0.8 mg/dl Direct Bilirubin 0.2 mg/dl Aspartate Amino Transf (AST/SGOT) 33 U/L Alanine Aminotransferase (ALT/SGPT) 45 U/L Alkaline Phosphatase 112 U/L Troponin I < 0.015 ng/ml Pro-B-Type Natriuretic Peptide 1644 pg/ml Total Protein 7.5 gm/dl Albumin 3.6 gm/dl Lipase 285 U/L Thyroid Stimulating Hormone (TSH) 0.601 uIu/ml Lactic Acid Level 0.8 mmol/L Test 09/17/17 23:33 09/18/17 05:09 09/18/17 12:52 Vitamin B12 Level 776 pg/mL White Blood Count 10.18 K/uL Red Blood Count 3.57 M/uL Hemoglobin 11.5 g/dL Hematocrit 35.6 % Mean Corpuscular Volume 99.7 fL Mean Corpuscular Hemoglobin 32.2 pg Mean Corpuscular Hemoglobin Concent 32.3 g/dl RDW Standard Deviation 49.5 fL RDW Coefficient of Variation 13.7 % Platelet Count 137 K/uL Mean Platelet Volume 9.9 fL Sodium Level 143 mmol/L Potassium Level 3.6 mmol/L Chloride Level 112 mmol/L Carbon Dioxide Level 22 mmol/L Anion Gap 9.0 mmol/L Blood Urea Nitrogen 29 mg/dl Creatinine 1.40 mg/dl Est Creatinine Clear Calc Drug Dose 27.7 ml/min Estimated GFR () 41.0 Estimated GFR (Non- 35.4 BUN/Creatinine Ratio 20.7 Random Glucose 163 mg/dl Calcium Level 8.7 mg/dl Magnesium Level 2.1 mg/dl Total Creatine Kinase 187 U/L 682 U/L Creatine Kinase MB 5.7 ng/ml 17.3 ng/ml Creatine Kinase MB Ratio 3.0 2.5 Troponin I 0.029 ng/ml 0.054 ng/ml Date/Time Source Procedure Growth Status 09/17/17 23:24 Blood Blood Culture Pending Received 09/17/17 23:19 Blood Blood Culture Pending Received 09/17/17 21:00 Urine,Catheterized Urine Culture - Final THREE TYPES OF ORGANISMS PRESENT, ALL... Complete Assessment & Plan Recurrent Falls due to ambulatory dysfunction Hx falls due to her failure to use her walker Head CT negative on admission No arrhythmia on tele monitor Continue PT/OT fall precaution Elevated troponin Denies any chest pain troponin 0.05 Will follow up with troponin EKG showed no significant ST changes continue monitor in telemetry Pneumonia CXR showed apparent hazy left basilar retrocardiac opacity Elevated WBC on admission WBC trending down to normal Continue Rocephin and Zithromax Abnormal UA UA showed trace leukocytes and bacteria Urince cx grew more than 3 organisms, contamination repeat urine cx ( Mostly Urine cx will be negative) on Rocephin which will cover UTI Hx. of Paroxysmal A. 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 pacemaker interrogation Not on coumadin due to fall risk continue b-joe and amiodarone Stable CAD s/p CABG and stents Asymptomatic continue aspirin, statin, b-joe HTN continue amlodipine CKD stage 3-4 Creatinine at baseline Continue monitor BMP avoid nephrotoxic agents DVT ppx Lovenox FULL CODE Current Inpatient Medications: Current Inpatient Medications Medications (Trade) Dose Ordered Sig/Ajit Route Start Time Stop Time Status Last Admin Dose Admin Enoxaparin Sodium (Lovenox Inj) 30 mg Q24H SC 09/18/17 09:00 10/18/17 08:59 09/18/17 08:23 30 MG Sodium Chloride 1,000 ml @ 80 mls/hr [id number] IV 09/18/17 02:00 10/18/17 01:59 09/18/17 14:14 80 MLS/HR Acetaminophen (Tylenol Tab) 650 mg Q4H PRN PO 09/17/17 23:15 10/17/17 23:14 Al Hydrox/Mg Hydrox/Simethicone (Maalox Max Susp) 15 ml Q4H PRN PO 09/17/17 23:15 10/17/17 23:14 Magnesium Hydroxide (Milk Of Magnesia Susp) 30 ml Q12H PRN PO 09/17/17 23:15 10/17/17 23:14 Ondansetron HCl (Zofran Inj) 4 mg Q6H PRN IV 09/17/17 23:15 10/17/17 23:14 Ceftriaxone Sodium 1 gm/ Dextrose 50 ml @ 100 mls/hr Q24H IV 09/18/17 22:00 09/25/17 21:59 Amiodarone HCl (Cordarone Tab) 200 mg DAILY PO 09/18/17 09:00 10/18/17 08:59 09/18/17 08:22 200 MG Amlodipine Besylate (Norvasc Tab) 2.5 mg DAILY PO 09/18/17 09:00 10/18/17 08:59 09/18/17 08:22 2.5 MG Aspirin (Ecotrin Tab) 81 mg DAILY PO 09/18/17 09:00 10/18/17 08:59 09/18/17 08:23 81 MG Atorvastatin Calcium (Lipitor Tab) 80 mg DAILY PO 09/18/17 09:00 10/18/17 08:59 09/18/17 08:23 80 MG Escitalopram Oxalate (Lexapro Tab) 5 mg DAILY PO 09/18/17 09:00 10/18/17 08:59 09/18/17 08:21 5 MG Hydralazine HCl (Apresoline Tab) 25 mg TID PO 09/18/17 09:00 10/18/17 08:59 09/18/17 14:14 25 MG Latanoprost (Xalatan Oph Soln) 1 drops HS OPB 09/18/17 21:00 10/18/17 20:59 Lorazepam (Ativan Tab) 0.25 mg Q6 PRN PO 09/17/17 23:15 10/17/17 23:14 Metoprolol Tartrate (Lopressor Tab) 25 mg Q12 PO 09/18/17 09:00 10/18/17 08:59 09/18/17 08:21 25 MG Multivitamins/ Minerals (Multivitamin W/ Minerals Tab) 1 tab DAILY PO 09/18/17 09:00 10/18/17 08:59 09/18/17 08:21 1 TAB Azithromycin 250 mg/Dextrose 252.5 ml @ 127.5 mls/ hr Q24H IV 09/19/17 06:00 09/22/17 07:59
[2017-09-18 19:22] VITALS: BP 131/66; PULSE 60; TEMP 37; O2SAT 93
[2017-09-18] MEDS: CEFTRIAXONE SOD INJ 1 GM in DEXTROSE 5% ADD-VANTAGE 50ML 50 ML IV SCH (20:53)
[2017-09-18] MEDS: LATANOPROST 0.005% OP SOLN 2.5 ML BTL OPB SCH (23:34)
[2017-09-19] VITALS (9 sets, daily range): BP systolic 100–153; BP diastolic 51–78; PULSE 60–69; TEMP 36.3–36.8; O2SAT 91–99
[2017-09-19] MEDS: SODIUM CHLORIDE 0.9% 1000ML 1,000 ML IV SCH ×2 (02:10→15:47)
[2017-09-19] MEDS: AZITHROMYCIN IV 250 MG in DEXTROSE 5% 250ML 250 ML IV SCH (05:44)
[2017-09-19] MEDS: AMIODARONE 200 MG TAB PO SCH (08:17)
[2017-09-19] MEDS: ASPIRIN 81 MG ECTAB PO SCH (08:17)
[2017-09-19] MEDS: ESCITALOPRAM OXALATE 10 MG TAB PO SCH (08:17)
[2017-09-19] MEDS: ATORVASTATIN 40 MG TAB PO SCH (08:17)
[2017-09-19] MEDS: CEROVITE ADV FORMULA TAB PO SCH (08:18)
[2017-09-19] MEDS: ENOXAPARIN 30 MG/0.3 ML SYR SC SCH (08:19)
[2017-09-19] MEDS: AMLODIPINE BESYLATE 5 MG TAB PO SCH (08:20)
[2017-09-19] MEDS: METOPROLOL TARTRATE 25 MG TAB PO SCH ×2 (08:20→20:34)
[2017-09-19 08:42] LABS: HEMATOCRIT 36.5 % (37-47); MEAN CELL VOLUME 101.1 fL (80-100); MEAN CORPUSCULAR HEMOGLOBIN 32.7 pg (25-34); MEAN CORPUSCULAR HGB CONC 32.3 g/dl (32-36); PLATELET COUNT 124 K/uL (130-400); RED BLOOD COUNT 3.61 M/uL (4.2-5.4); WHITE BLOOD COUNT 7.99 K/uL (4.8-10.8)
[2017-09-19 09:09] LABS: BUN/CREATININE RATIO 19.8 (10-20); CALCIUM 8.5 mg/dl (8.5-10.1); CREATININE 1.17 mg/dl (0.60-1.20); POTASSIUM 3.6 mmol/L (3.5-5.1)
--- NOTE | 2017-09-19 18:50 | Progress Note ---
Medicine Progress Note Date & Time of Visit: Sep 19, 2017 at 09:46. Subjective Pt was seen and examined Lying in bed with no distress Denies any chest pain, palpitation and SOB Objective Last 8 Hrs Date Time Temp Pulse Resp B/P (MAP) Pulse Ox O2 Delivery O2 Flow Rate FiO2 09/19/17 16:00 Room Air 09/19/17 14:35 36.8 65 18 129/78 (95) 97 Room Air 09/19/17 12:00 Room Air 09/19/17 11:41 36.7 60 16 100/51 (67) 95 Room Air Physical Exam: General- No acute distress Head- atraumatic Eyes- PERRL ENT- oropharynx clear Neck- supple, no JVD Lungs- Coarse BS Heart- regular rhythm Abdomen- normal bowel sounds, soft Extremities- no calf tenderness Neuro- alert, oriented x 3; PERRL, move all 4 extremities Skin- warm & dry Laboratory Results: Last 24 Hours Test 09/19/17 08:21 White Blood Count 7.99 K/uL Red Blood Count 3.61 M/uL Hemoglobin 11.8 g/dL Hematocrit 36.5 % Mean Corpuscular Volume 101.1 fL Mean Corpuscular Hemoglobin 32.7 pg Mean Corpuscular Hemoglobin Concent 32.3 g/dl RDW Standard Deviation 50.0 fL RDW Coefficient of Variation 13.5 % Platelet Count 124 K/uL Mean Platelet Volume 10.0 fL Sodium Level 143 mmol/L Potassium Level 3.6 mmol/L Chloride Level 112 mmol/L Carbon Dioxide Level 24 mmol/L Anion Gap 7.0 mmol/L Blood Urea Nitrogen 23 mg/dl Creatinine 1.17 mg/dl Est Creatinine Clear Calc Drug Dose 33.1 ml/min Estimated GFR () 51.0 Estimated GFR (Non- 44.0 BUN/Creatinine Ratio 19.8 Random Glucose 101 mg/dl Calcium Level 8.5 mg/dl Date/Time Source Procedure Growth Status 09/19/17 00:00 Urine , Clean Catch Urine Culture Pending Received Assessment & Plan Recurrent Falls due to ambulatory dysfunction Hx falls due to her failure to use her walker Head CT negative on admission No arrhythmia on tele monitor Continue PT/OT fall precaution Elevated troponin Denies any chest pain troponin 0.05 Troponin trending down EKG showed no significant ST changes continue monitor in telemetry Pneumonia CXR showed apparent hazy left basilar retrocardiac opacity Elevated WBC on admission WBC trending down to normal Continue Rocephin and Zithromax Will add guaifenesin for cough Abnormal UA UA showed trace leukocytes and bacteria Urince cx grew more than 3 organisms, contamination Urine sample recollected ( Mostly Urine cx will be negative) on Rocephin which will cover UTI Hx. of Paroxysmal A. 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 pacemaker interrogation Not on coumadin due to fall risk continue b-joe and amiodarone Stable CAD s/p CABG and stents Asymptomatic continue aspirin, statin, b-joe HTN continue amlodipine CKD stage 3-4 Creatinine at baseline Continue monitor BMP avoid nephrotoxic agents DVT ppx Lovenox FULL CODE Current Inpatient Medications: Current Inpatient Medications Medications (Trade) Dose Ordered Sig/Ajit Route Start Time Stop Time Status Last Admin Dose Admin Enoxaparin Sodium (Lovenox Inj) 30 mg Q24H SC 09/18/17 09:00 10/18/17 08:59 09/19/17 08:19 30 MG Sodium Chloride 1,000 ml @ 80 mls/hr [id number] IV 09/18/17 02:00 10/18/17 01:59 09/19/17 15:47 80 MLS/HR Acetaminophen (Tylenol Tab) 650 mg Q4H PRN PO 09/17/17 23:15 10/17/17 23:14 Al Hydrox/Mg Hydrox/Simethicone (Maalox Max Susp) 15 ml Q4H PRN PO 09/17/17 23:15 10/17/17 23:14 Magnesium Hydroxide (Milk Of Magnesia Susp) 30 ml Q12H PRN PO 09/17/17 23:15 10/17/17 23:14 Ondansetron HCl (Zofran Inj) 4 mg Q6H PRN IV 09/17/17 23:15 10/17/17 23:14 09/19/17 07:53 4 MG Ceftriaxone Sodium 1 gm/ Dextrose 50 ml @ 100 mls/hr Q24H IV 09/18/17 22:00 09/25/17 21:59 09/18/17 20:53 100 MLS/HR Amiodarone HCl (Cordarone Tab) 200 mg DAILY PO 09/18/17 09:00 10/18/17 08:59 09/19/17 08:17 200 MG Amlodipine Besylate (Norvasc Tab) 2.5 mg DAILY PO 09/18/17 09:00 10/18/17 08:59 09/19/17 08:20 2.5 MG Aspirin (Ecotrin Tab) 81 mg DAILY PO 09/18/17 09:00 10/18/17 08:59 09/19/17 08:17 81 MG Atorvastatin Calcium (Lipitor Tab) 80 mg DAILY PO 09/18/17 09:00 10/18/17 08:59 09/19/17 08:17 80 MG Escitalopram Oxalate (Lexapro Tab) 5 mg DAILY PO 09/18/17 09:00 10/18/17 08:59 09/19/17 08:17 5 MG Hydralazine HCl (Apresoline Tab) 25 mg TID PO 09/18/17 09:00 10/18/17 08:59 09/19/17 14:39 25 MG Latanoprost (Xalatan Oph Soln) 1 drops HS OPB 09/18/17 21:00 10/18/17 20:59 09/18/17 23:34 1 DROPS Lorazepam (Ativan Tab) 0.25 mg Q6 PRN PO 09/17/17 23:15 10/17/17 23:14 Metoprolol Tartrate (Lopressor Tab) 25 mg Q12 PO 09/18/17 09:00 10/18/17 08:59 09/19/17 08:20 25 MG Multivitamins/ Minerals (Multivitamin W/ Minerals Tab) 1 tab DAILY PO 09/18/17 09:00 10/18/17 08:59 09/19/17 08:18 1 TAB Azithromycin 250 mg/Dextrose 252.5 ml @ 127.5 mls/ hr Q24H IV 09/19/17 06:00 09/22/17 07:59 09/19/17 05:44 127.5 MLS/HR
[2017-09-19] MEDS: LATANOPROST 0.005% OP SOLN 2.5 ML BTL OPB SCH (20:34)
[2017-09-19] MEDS: CEFTRIAXONE SOD INJ 1 GM in DEXTROSE 5% ADD-VANTAGE 50ML 50 ML IV SCH (22:21)
[2017-09-20] VITALS (8 sets, daily range): BP systolic 120–147; BP diastolic 68–88; PULSE 63–68; TEMP 36.2–37; O2SAT 90–99
[2017-09-20] MEDS: AZITHROMYCIN IV 250 MG in DEXTROSE 5% 250ML 250 ML IV SCH (05:47)
[2017-09-20] MEDS: ESCITALOPRAM OXALATE 10 MG TAB PO SCH (08:29)
[2017-09-20] MEDS: GUAIFENESIN 200 MG TAB PO PRN ×2 (08:29→18:29)
[2017-09-20] MEDS: CEROVITE ADV FORMULA TAB PO SCH (08:29)
[2017-09-20] MEDS: ATORVASTATIN 40 MG TAB PO SCH (08:30)
[2017-09-20] MEDS: ASPIRIN 81 MG ECTAB PO SCH (08:30)
[2017-09-20] MEDS: AMLODIPINE BESYLATE 5 MG TAB PO SCH (08:30)
[2017-09-20] MEDS: AMIODARONE 200 MG TAB PO SCH (08:31)
[2017-09-20] MEDS: METOPROLOL TARTRATE 25 MG TAB PO SCH ×2 (08:31→20:50)
[2017-09-20] MEDS: ENOXAPARIN 30 MG/0.3 ML SYR SC SCH (08:32)
--- NOTE | 2017-09-20 17:45 | Progress Note ---
Medicine Progress Note Date & Time of Visit: Sep 20, 2017 at 13:23. Subjective Pt was seen and examined Sitting in bed with no distress with daughter and granddaughter at bedside She looks much better and more awake today Continue to cough Denies any chest pain, palpitation, dizziness and SOB Objective Last 8 Hrs Date Time Temp Pulse Resp B/P (MAP) Pulse Ox O2 Delivery O2 Flow Rate FiO2 09/20/17 16:00 Room Air 09/20/17 14:57 36.2 64 18 122/68 (86) 95 Room Air 09/20/17 12:00 Room Air 09/20/17 11:27 36.3 66 18 145/88 (107) 95 Physical Exam: General- No acute distress Head- atraumatic Eyes- PERRL ENT- oropharynx clear Neck- supple, no JVD Lungs- Coarse BS Heart- regular rhythm Abdomen- normal bowel sounds, soft Extremities- no calf tenderness Neuro- alert, oriented x 3; PERRL, move all 4 extremities Skin- warm & dry Laboratory Results: Date/Time Source Procedure Growth Status 09/20/17 11:30 Stool C.difficile Toxin B Gene (PCR) - Final No C. difficile toxin B gene detected Complete Assessment & Plan Recurrent Falls due to ambulatory dysfunction Hx falls due to her failure to use her walker Head CT negative on admission No arrhythmia on tele monitor Continue PT/OT fall precaution Elevated troponin Denies any chest pain troponin 0.05 Troponin trending down EKG showed no significant ST changes continue monitor in telemetry Pneumonia CXR showed apparent hazy left basilar retrocardiac opacity Elevated WBC on admission WBC trending down to normal Continue Rocephin and Zithromax Continue guaifenesin for cough Add prednisone Abnormal UA UA showed trace leukocytes and bacteria Urince cx grew more than 3 organisms, contamination Urine sample recollected ( Mostly Urine cx will be negative) Repeat urine cx showed no growth on Rocephin which will cover UTI Hx. of Paroxysmal A. 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 pacemaker interrogation done Not on Coumadin due to fall risk continue b-joe and amiodarone Stable Diarrhea Possible due to the Abx Stool for CDiff negative continue monitor CAD s/p CABG and stents Asymptomatic continue aspirin, statin, b-joe HTN continue amlodipine CKD stage 3-4 Creatine on admission 1.59 Creatine improved to 1.1 Continue monitor BMP avoid nephrotoxic agents DVT ppx Lovenox FULL CODE DISPOSITION Will discharge once medically stable Current Inpatient Medications: Current Inpatient Medications Medications (Trade) Dose Ordered Sig/Ajit Route Start Time Stop Time Status Last Admin Dose Admin Enoxaparin Sodium (Lovenox Inj) 30 mg Q24H SC 09/18/17 09:00 10/18/17 08:59 09/20/17 08:32 30 MG Acetaminophen (Tylenol Tab) 650 mg Q4H PRN PO 09/17/17 23:15 10/17/17 23:14 Al Hydrox/Mg Hydrox/Simethicone (Maalox Max Susp) 15 ml Q4H PRN PO 09/17/17 23:15 10/17/17 23:14 Magnesium Hydroxide (Milk Of Magnesia Susp) 30 ml Q12H PRN PO 09/17/17 23:15 10/17/17 23:14 Ondansetron HCl (Zofran Inj) 4 mg Q6H PRN IV 09/17/17 23:15 10/17/17 23:14 09/19/17 07:53 4 MG Ceftriaxone Sodium 1 gm/ Dextrose 50 ml @ 100 mls/hr Q24H IV 09/18/17 22:00 09/25/17 21:59 09/19/17 22:21 100 MLS/HR Amiodarone HCl (Cordarone Tab) 200 mg DAILY PO 09/18/17 09:00 10/18/17 08:59 09/20/17 08:31 200 MG Amlodipine Besylate (Norvasc Tab) 2.5 mg DAILY PO 09/18/17 09:00 10/18/17 08:59 09/20/17 08:30 2.5 MG Aspirin (Ecotrin Tab) 81 mg DAILY PO 09/18/17 09:00 10/18/17 08:59 09/20/17 08:30 81 MG Atorvastatin Calcium (Lipitor Tab) 80 mg DAILY PO 09/18/17 09:00 10/18/17 08:59 09/20/17 08:30 80 MG Escitalopram Oxalate (Lexapro Tab) 5 mg DAILY PO 09/18/17 09:00 10/18/17 08:59 09/20/17 08:29 5 MG Hydralazine HCl (Apresoline Tab) 25 mg TID PO 09/18/17 09:00 12/22/17 08:59 09/20/17 14:57 25 MG Latanoprost (Xalatan Oph Soln) 1 drops HS OPB 09/18/17 21:00 10/18/17 20:59 09/19/17 20:34 1 DROPS Lorazepam (Ativan Tab) 0.25 mg Q6 PRN PO 09/17/17 23:15 10/17/17 23:14 Metoprolol Tartrate (Lopressor Tab) 25 mg Q12 PO 09/18/17 09:00 10/18/17 08:59 09/20/17 08:31 25 MG Multivitamins/ Minerals (Multivitamin W/ Minerals Tab) 1 tab DAILY PO 09/18/17 09:00 10/18/17 08:59 09/20/17 08:29 1 TAB Azithromycin 250 mg/Dextrose 252.5 ml @ 127.5 mls/ hr Q24H IV 09/19/17 06:00 09/22/17 07:59 09/20/17 05:47 127.5 MLS/HR Guaifenesin (Organidin Nr Tab) 200 mg Q8 PRN PO 09/19/17 19:00 10/19/17 18:59 09/20/17 08:29 200 MG
[2017-09-20] MEDS: LATANOPROST 0.005% OP SOLN 2.5 ML BTL OPB SCH (20:47)
[2017-09-20] MEDS: LEVALBUTEROL 0.63MG/3 ML NEB INH SCH (21:00)
[2017-09-20] MEDS: IPRATROPIUM BROMIDE NEB SOLN 0.02% 2.5 ML VIAL INH SCH (21:00)
[2017-09-20] MEDS ORDERED: LEVALBUTEROL/IPRATROPIUM NEB INH SCH (21:00)
[2017-09-20] MEDS: CEFTRIAXONE SOD INJ 1 GM in DEXTROSE 5% ADD-VANTAGE 50ML 50 ML IV SCH (22:27)
[2017-09-21] VITALS (10 sets, daily range): BP systolic 122–155; BP diastolic 64–76; PULSE 60–79; TEMP 36.2–36.7; O2SAT 94–97
[2017-09-21] MEDS: IPRATROPIUM BROMIDE NEB SOLN 0.02% 2.5 ML VIAL INH SCH ×3 (01:58→14:22)
[2017-09-21] MEDS: LEVALBUTEROL 0.63MG/3 ML NEB INH SCH ×3 (01:59→14:22)
[2017-09-21] MEDS: AZITHROMYCIN IV 250 MG in DEXTROSE 5% 250ML 250 ML IV SCH (06:24)
[2017-09-21] MEDS: ASPIRIN 81 MG ECTAB PO SCH (08:44)
[2017-09-21] MEDS: ESCITALOPRAM OXALATE 10 MG TAB PO SCH (08:44)
[2017-09-21] MEDS: ATORVASTATIN 40 MG TAB PO SCH (08:44)
[2017-09-21] MEDS: AMLODIPINE BESYLATE 5 MG TAB PO SCH (08:44)
[2017-09-21] MEDS: CEROVITE ADV FORMULA TAB PO SCH (08:45)
[2017-09-21] MEDS: METOPROLOL TARTRATE 25 MG TAB PO SCH (08:45)
[2017-09-21] MEDS: AMIODARONE 200 MG TAB PO SCH (08:46)
[2017-09-21] MEDS: GUAIFENESIN 200 MG TAB PO PRN (08:46)
[2017-09-21] MEDS: ENOXAPARIN 30 MG/0.3 ML SYR SC SCH (08:47)
[2017-09-21] MEDS ORDERED: PRD20 PO (16:23)
[2017-09-21] MEDS ORDERED: XPNINS INH (16:23)
[2017-09-21] MEDS ORDERED: AZIT-60 PO (16:24)
--- NOTE | 2017-09-21 16:31 | Discharge Instructions ---
Discharge Instructions Date of Service Sep 21, 2017. Admission Reason for Admission: Pneumonia, Syncope, Uti Discharge Discharge Diagnosis / Problem: Pneumonia, Abnormal UA, Diarrhea, Recurrent fall , Elevated troponin Discharge Goals Goal(s): Decrease discomfort, Improve function, Improve disease control Activity Recommendations Activity Limitations: resume your previous activity (as tolerated) . Instructions / Follow-Up Instructions / Follow-Up Follow up with your primary care physician (call to schedule for follow up appointment) Fall precaution Continue Physical therapy Current Hospital Diet Patient's current hospital diet: AHA Diet (Heart Healthy) Discharge Diet Recommended Diet: AHA Diet (Heart Healthy) Pending Studies Studies pending at discharge: no Medical Emergencies . Who to Call and When: Medical Emergencies: If at any time you feel your situation is an emergency, please call 911 immediately. . Non-Emergent Contact Non-Emergency issues call your: Primary Care Provider Call Non-Emergent contact if: you have a fever, you have any medication questions . . "Provider Documentation" section prepared by Felicita Shay. . VTE Core Measure Inpt VTE Proph given/why not?: Enoxaparin (Lovenox)SQ
--- NOTE | 2017-09-21 18:49 | Progress Note ---
Medicine Progress Note Date & Time of Visit: Sep 21, 2017 at 11:43. Subjective Pt was seen and examined Sitting in chair with no distress with daughter at bedside Cough improves Denies any chest pain, palpitation, dizziness and SOB Objective Last 8 Hrs Date Time Temp Pulse Resp B/P (MAP) Pulse Ox O2 Delivery O2 Flow Rate FiO2 09/21/17 16:24 36.5 68 16 96 Room Air 09/21/17 15:00 36.5 68 16 136/64 (88) 96 Room Air 09/21/17 14:22 79 16 94 Room Air 09/21/17 12:18 36.7 60 18 122/69 (86) 96 Room Air 09/21/17 12:00 Room Air Physical Exam: General- No acute distress Head- atraumatic Eyes- PERRL ENT- oropharynx clear Neck- supple, no JVD Lungs- Mild coarse BS Heart- regular rhythm Abdomen- normal bowel sounds, soft Extremities- no calf tenderness Neuro- alert, oriented x 3; PERRL, move all 4 extremities Skin- warm & dry Assessment & Plan Recurrent Falls due to ambulatory dysfunction Hx falls due to her failure to use her walker Head CT negative on admission No arrhythmia on tele monitor Continue PT/OT fall precaution Elevated troponin Denies any chest pain troponin 0.05 Troponin trending down EKG showed no significant ST changes continue monitor in telemetry Pneumonia CXR showed apparent hazy left basilar retrocardiac opacity Elevated WBC on admission WBC trending down to normal Received IV Rocephin and Zithromax for 4 days Continue guaifenesin for cough Continue prednisone Discharge on Zithromax to complete 5 days course Abnormal UA Afebrile Leukocytosis trends to normal UA showed trace leukocytes and bacteria Urince cx grew more than 3 organisms, contamination Urine sample recollected ( Mostly Urine cx will be negative) Repeat urine cx showed no growth received [id number] days Hx. of Paroxysmal A. 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
== END 2017-09-21 16:50 | disposition home or self-care (01) | DRG 91 ==
LOC: EDBD 19:34 → C.EDB 19:35 → C.MED 23:13 → ENRESERV 23:30
PROVIDERS: ADMIT Family Medicine; ATTEND Internal Medicine
DX: R29.6 Repeated falls (principal); J18.9 Pneumonia, unspecified organism; Z91.19 Patient's noncompliance with other medical treatment and regimen; R19.7 Diarrhea, unspecified; T36.1X5A Adverse effect of cephalosporins and other beta-lactam antibiotics, initial encounter; R82.90 Unspecified abnormal findings in urine; R79.89 Other specified abnormal findings of blood chemistry; F03.90 Unspecified dementia, unspecified severity, without behavioral disturbance, psychotic disturbance, mood disturbance, and anxiety; I48.0 Paroxysmal atrial fibrillation; I25.10 Atherosclerotic heart disease of native coronary artery without angina pectoris; I12.9 Hypertensive chronic kidney disease with stage 1 through stage 4 chronic kidney disease, or unspecified chronic kidney disease; N18.3 Chronic kidney disease, stage 3 (moderate); E78.5 Hyperlipidemia, unspecified; Z95.0 Presence of cardiac pacemaker; Z95.1 Presence of aortocoronary bypass graft; Z95.5 Presence of coronary angioplasty implant and graft; Z79.82 Long term (current) use of aspirin; Z79.899 Other long term (current) drug therapy; Z82.49 Family history of ischemic heart disease and other diseases of the circulatory system; Z81.8 Family history of other mental and behavioral disorders; Z80.42 Family history of malignant neoplasm of prostate

== ENCOUNTER → 2017-10-15 | Outpatient (CLI) | payer OTHER ==
[~2017-10-15] MED LIST changes: -AMLO-110 PO; +AMLO2.5T PO; +ASPI81TA28 PO; +ATV5X PO; -CYAN100020 PO; -DOCU-94 PO; -ESCI10TA17 PO; +ESCI1TAB6 PO; +MULT-513 PO; -NYST1POW7 TOP; +ONDA4TAB46 PO; +PRD20 PO; -SENN1TAB86 PO; +TRMCR130WC TOP; -TRMCR515 TOP; -VTMD1000 PO; -WARF4TAB PO; +XPNINS INH
[2017-10-15 13:13] LABS: ALBUMIN 3.1 gm/dl (3.4-5.0)
== END | disposition home or self-care (01) ==
LOC: C.LABWYN 13:04
PROVIDERS: ATTEND Internal Medicine
DX: R63.4 Abnormal weight loss (principal)

== ENCOUNTER → 2017-11-12 | Outpatient (CLI) | payer OTHER ==
[2017-11-12 12:44] LABS: HEMATOCRIT 35.8 % (37-47); HEMOGLOBIN 11.7 g/dL (12.0-16.0); MEAN CELL VOLUME 99.7 fL (80-100); MEAN CORPUSCULAR HEMOGLOBIN 32.6 pg (25-34); MEAN CORPUSCULAR HGB CONC 32.7 g/dl (32-36); MEAN PLATELET VOLUME 10.6 fL (7.4-10.4); PLATELET COUNT 142 K/uL (130-400); RED CELL DISTRIBUTION WIDTH CV 13.9 % (11.5-14.5); RED CELL DISTRIBUTION WIDTH SD 50.8 fL (36.4-46.3); WHITE BLOOD COUNT 5.26 K/uL (4.8-10.8)
[2017-11-12 13:06] LABS: BLOOD UREA NITROGEN 26 mg/dl (7-18); CALCIUM 8.9 mg/dl (8.5-10.1); CARBON DIOXIDE 26 mmol/L (21-32); CREATININE 1.33 mg/dl (0.60-1.20); GLUCOSE 76 mg/dl (70-99); POTASSIUM 4.1 mmol/L (3.5-5.1); SODIUM 143 mmol/L (136-145)
[2017-11-12 13:09] LABS: CHOLESTEROL 91 mg/dl (0-200); LDL CHOLESTEROL CALCULATED 26 mg/dl
== END | disposition home or self-care (01) ==
LOC: C.LABWYN 09:50
PROVIDERS: ATTEND Internal Medicine
DX: I10 Essential (primary) hypertension (principal); E78.5 Hyperlipidemia, unspecified

== ENCOUNTER → 2017-12-17 | Outpatient (CLI) | payer OTHER ==
[2017-12-17 14:18] LABS: BLOOD UREA NITROGEN 28 mg/dl (7-18); CARBON DIOXIDE 23 mmol/L (21-32); CREATININE 1.24 mg/dl (0.60-1.20); GLUCOSE 89 mg/dl (70-99); POTASSIUM 4.2 mmol/L (3.5-5.1); SODIUM 145 mmol/L (136-145)
== END ==
LOC: C.LABWYN 10:48
PROVIDERS: ATTEND Internal Medicine
DX: I50.9 Heart failure, unspecified (principal)

== ENCOUNTER → 2018-02-06 | Outpatient (CLI) | payer OTHER ==
[2018-02-06 13:51] LABS: BLOOD UREA NITROGEN 28 mg/dl (7-18); CALCIUM 8.8 mg/dl (8.5-10.1); CARBON DIOXIDE 25 mmol/L (21-32); CREATININE 1.28 mg/dl (0.60-1.20); GLUCOSE 77 mg/dl (70-99); POTASSIUM 3.7 mmol/L (3.5-5.1); SODIUM 144 mmol/L (136-145)
== END | disposition home or self-care (01) ==
LOC: C.LABWYN 13:04
PROVIDERS: ATTEND Internal Medicine
DX: N18.6 End stage renal disease (principal)

== ENCOUNTER → 2018-02-11 | Outpatient (CLI) | payer OTHER ==
[2018-02-11 13:03] LABS: HEMATOCRIT 36.1 % (37-47); HEMOGLOBIN 11.9 g/dL (12.0-16.0); MEAN CELL VOLUME 98.9 fL (80-100); MEAN CORPUSCULAR HEMOGLOBIN 32.6 pg (25-34); PLATELET COUNT 124 K/uL (130-400); RED CELL DISTRIBUTION WIDTH CV 14.1 % (11.5-14.5); RED CELL DISTRIBUTION WIDTH SD 51.2 fL (36.4-46.3); WHITE BLOOD COUNT 5.09 K/uL (4.8-10.8)
== END | disposition home or self-care (01) ==
LOC: C.LABWYN 12:03
PROVIDERS: ATTEND Internal Medicine
DX: I10 Essential (primary) hypertension (principal)